=== PATIENT | male | born 1945 | race African-American/Black ===

== ENCOUNTER 2023-08-16 18:24 | Emergency (ER) | payer OTHER, MEDICAID ==
[~2023-08-16] VITALS: Ht 177.8 cm; Wt 55.0 kg
[2023-08-16 18:36] VITALS: BP 125/87; PULSE 62; RESP 18; TEMP 98.1; O2SAT 100
[2023-08-16] MEDS ORDERED: MORPHINE SULFATE 2 MG/ML CPJ (NOT FOR IM USE) IV ONE (20:00)
[2023-08-16] MEDS ORDERED: LIDOCAINE HCL/PF 1% 10 MG/ML 5ML VIAL INFIL ONE (20:00)
== END 2023-08-16 22:39 | disposition home or self-care (01) ==
LOC: ER 18:24
DX: T82.838A Hemorrhage due to vascular prosthetic devices, implants and grafts, initial encounter (principal)
CPT/HCPCS: 99291; 96374; 12001; J3490; J2270; 80048; 99283